=== PATIENT | female | born 1950 | race Caucasian/White ===

== ENCOUNTER → 2018-03-12 09:15 | Outpatient (CLI) | payer BC ==
[2015-12-14 10:56] VITALS: BMI 34.0
[~2018-03-12 09:15] MED LIST: ASPIRIN EC81 MG PO; LEVOTHROID112 MCG PO; LISINOPRIL10 MG PO; PRAVACHOL40 MG PO; PROZAC40 MG PO; VITAMIN D3 PO; ZOFRAN4 MG PO
== END | disposition home or self-care (01) ==
LOC: D.US 09:00
DX: R14.0 Abdominal distension (gaseous) (principal)

== ENCOUNTER 2018-05-04 06:08 | Inpatient (IN) | payer BC, MEDICARE ==
[2018-05-04] VITALS (7 sets, daily range): BP systolic 114–143; BP diastolic 58–73; BMI 33.7
[~2018-05-04] VITALS: Ht 154.9 cm; Wt 80.7 kg
--- NOTE | ~2018-05-04 | MORECARE ---
CASE MANAGEMENT DISCHARGE SUMMARY PATIENT: HENRRY YATES UNIT: [id number] ADM DATE: 05/04/18 AGE: 67 : 50 SEX: F ROOM/BED: D.1210 AUTHOR: KEN,DOC PHYSICIAN: REFERRING PHYSICIAN: QUAN RODRIGUEZ MD DATE OF SERVICE: 05/08/18 Discharge Plan Patient Name: HENRRY YATES Facility: [facility]:[place] : 1950 Planned Disposition: Home Anticipated Discharge Date: 05/10/18 Discharge Date: Expected LOS: 6 Initial Reviewer: [id number] Initial Review Date: 05/08/2018 Generated: 05/08/18 7:42 pm Comments DCP- Discharge Planning Updated by [email or web address]: Destiny Rhoades on 05/08/18 5:[address] Patient Name: HENRRY YATES Admission Status: ER Accout number: [id number] Admission Date: 05-04-2018 : 1950 Admission Diagnosis:ACUTE PANCREATITIS WITHOUT NECROSIS OR INFECTION, UNSP Attending: QUAN RODRIGUEZ Current LOS: 4 Anticipated DC Date: 05-10-2018 Planned Disposition: Home Primary Insurance: [employer] Discharge Planning Comments: CM MET WITH PATIENT REGARDING D/C NEEDS AND PLANS. PATIENT STATED SHE LIVES ALONE AND HAS NO STEPS TO ENTER HER HOME. PATIENT STATED SHE WILL DRIVE HERSELF HOME AT DISCHARGE. PATIENT IS INDEPENDENT AND HAS NO DME. PATIENTS PCP IS DR. HUFFMAN AND [facility] [address] [facility]. PATIENT REFUSED HOME HEALTH. CM WILL CONTINUE TO FOLLOW PATIENT WITH D/C NEEDS AND PLANS. PCP DR. NATHANAEL ZARATE [facility] ROBINA BARILLAS (SISTER) [phone] Ichthyologist: Destiny Rhoades DCPIA - Discharge Planning Initial Assessment Updated by [email or web address]: Destiny Rhoades on 05/08/18 6:37 pm * Is the patient Alert and Oriented? Yes * How many steps to enter\exit or inside your home? * PCP DR. HUFFMAN * Pharmacy [facility] [address] [facility] * Preadmission Environment Home Alone * ADLs Independent * Equipment None * List name and contact numbers for known caregivers / representatives who currently or will assist patient after discharge: ROBINA BARILLAS (SISTER) [phone] * Verbal permission to speak to the caregivers and representatives has been obtained from the patient. Yes * Community resources currently utilized None * Additional services required to return to the preadmission environment? Yes * Can the patient safely return to the preadmission environment? Yes * Has this patient been hospitalized within the prior 30 days at any hospital? No Patient Name: HENRRY YATES Page [id number] at 1842 All edits/amendments must be made on the electronic document DICTATION DATE: 05/08/181840 TOP INSTALLER: ESMER 05/08/181840 RPT#: [id number] DC DATE: STATUS: ADM IN [facility] [address] [place] [address] END OF REPORT
--- NOTE | ~2018-05-04 | HP ---
PATIENT: HENRRY YATES MEDICAL RECORD: [id number] ACCOUNT: [id number] LOCATION:[facility] D1210 : 50 ADMISSION DATE: 05/04/18 PCP: ALYSSA HUFFMAN HISTORY AND PHYSICAL EXAMINATION DATE OF ADMISSION: 05/04/2018 CHIEF COMPLAINT: Abdominal pain. HISTORY OF PRESENT ILLNESS: This is a 67-year-old female who had acute onset of abdominal pain yesterday afternoon. The pain was progressive and gradually worsening. She had nausea, but did not vomit until she got to the Emergency Room. She denies any diarrhea. She has a history of pancreatitis being treated in 2016 for that. She states this felt like the same pains. CT of the abdomen and pelvis done in the Emergency Department, had findings consistent with acute pancreatitis. There were no pseudocysts. White count was elevated at 17,700. Glucose was elevated at 285 (she has no known history of diabetes, but it runs the family). Amylase was elevated at 177, lipase elevated at 8719. She was admitted with acute pancreatitis. PAST MEDICAL AND SURGICAL HISTORY: She has hypothyroidism, hypertension, one bout of pancreatitis in 2016. PAST SURGICAL HISTORY: Appendectomy, tonsillectomy, hysterectomy, bladder suspension, breast lumpectomy, and rhinoplasty. HOME MEDICATIONS: Lisinopril 10 mg a day, pravastatin 40 mg a day, aspirin 81 mg a day, Prozac 40 mg a day, vitamin D daily, levothyroxine 112 mcg once a day, Zofran p.r.n. nausea. ALLERGIES: SULFA, NEXIUM, REGLAN, MORPHINE, PENICILLIN, KEFLEX AND LEVAQUIN. HABITS: She is a former smoker. Very rare alcohol. No illicit drug use. SOCIAL HISTORY: She is . 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 FAMILY HISTORY: Father in his late 70s. He had COPD and diabetes. Mother in her late 70s of uncertain causes. The patient had a brother with diabetes as well. REVIEW OF SYSTEMS: GENERAL: No major weight changes. HEENT: No particular sinus or allergy problems. RESPIRATORY: No history of COPD or asthma. CARDIAC: No history of heart disease. GASTROINTESTINAL: She has had some reflux. She has history of pancreatitis. GENITOURINARY: No significant problems there. MUSCULOSKELETAL: No significant problems there. NEUROLOGIC: No migraines or seizure disorder. PSYCHIATRIC: She has some depression. PHYSICAL EXAMINATION: VITAL SIGNS: Today, temperature 98.4, pulse 72, respirations 18, blood pressure 114/58, O2 sats 92%. HISTORY AND PHYSICAL [id number] HENRRY YATES GENERAL: Currently, she is under the effect of some Demerol, it was given to the patient recently. She is a little groggy. SKIN: Warm and dry. HEENT: Unremarkable. NECK: Supple. No JVD or bruit. HEART: Regular rate and rhythm without murmur. LUNGS: Clear. ABDOMEN: Soft, but distended and generalized tenderness. No guarding, no rebound, no mass. EXTREMITIES: No edema. LABORATORY DATA: CBC with a white count of 17,700, hemoglobin 14.3, hematocrit 42. Basic metabolic panel; sodium 135, potassium 4.4, chloride 99, CO2 28, BUN 27, creatinine 0.8, glucose 285, calcium is 8.8, magnesium 2.2. Liver functions are normal. Amylase 177, lipase 8719. CT of abdomen and pelvis with findings consistent with acute pancreatitis, no pseudocyst. ASSESSMENT: 1. Acute pancreatitis. 2. History of hypertension. 3. History of hypothyroidism. 4. Elevated glucose with no history of diabetes. PLAN: IV fluids, clear liquid diet. Pain control. We will change Demerol to Dilaudid and see if she tolerates that. Zofran as needed. We will not place NG tube unless she starts serial episodes of vomiting. We will check an A1c with this elevated glucose. Other tests and procedures as warranted. TRANSINT:[id number] Voice Confirmation ID: [id number] DOCUMENT ID: [id number] QUAN RODRIGUEZ MD at 1930 CC: [id number] DICTATION DATE: 05/04/18 1128 FURNACE PUNCHER: 05/04/18 1525 ADM IN [facility] [address] [place] [address]
--- NOTE | ~2018-05-04 | MORECARE ---
CASE MANAGEMENT DISCHARGE SUMMARY PATIENT: HENRRY YATES UNIT: [id number] ADM DATE: 05/04/18 AGE: 67 : 50 SEX: F ROOM/BED: D.1210 AUTHOR: TONY ROGERS PHYSICIAN: REFERRING PHYSICIAN: QUAN RODRIGUEZ MD DATE OF SERVICE: 05/09/18 Discharge Plan Patient Name: HENRRY YATES Facility: [facility]:[place] : 1950 Planned Disposition: Home Anticipated Discharge Date: 05/10/18 Discharge Date: 05/09/2018 Expected LOS: 6 Initial Reviewer: [email or web address] Initial Review Date: 05/08/2018 Generated: 05/09/18 4:57 pm Comments DCP- Discharge Planning Updated by [id number]: Destiny Rhoades on 05/08/18 5:[address] Patient Name: HENRRY YATES Admission Status: ER Accout number: [id number] Admission Date: 05-04-2018 : 1950 Admission Diagnosis:ACUTE PANCREATITIS WITHOUT NECROSIS OR INFECTION, UNSP Attending: QUAN RODRIGUEZ Current LOS: 4 Anticipated DC Date: 05-10-2018 Planned Disposition: Home Primary Insurance: [employer] Discharge Planning Comments: CM MET WITH PATIENT REGARDING D/C NEEDS AND PLANS. PATIENT STATED SHE LIVES ALONE AND HAS NO STEPS TO ENTER HER HOME. PATIENT STATED SHE WILL DRIVE HERSELF HOME AT DISCHARGE. PATIENT IS INDEPENDENT AND HAS NO DME. PATIENTS PCP IS DR. HUFFMAN AND [facility] [address] [facility]. PATIENT REFUSED HOME HEALTH. CM WILL CONTINUE TO FOLLOW PATIENT WITH D/C NEEDS AND PLANS. PCP DR. NATHANAEL ZARATE [facility] ROBINA BARILLAS (SISTER) [phone] Food Consultant: Destiny Rhoades DCPIA - Discharge Planning Initial Assessment Updated by [email or web address]: Destiny Rhoades on 05/08/18 6:37 pm * Is the patient Alert and Oriented? Yes * How many steps to enter\exit or inside your home? * PCP DR. HUFFMAN * Pharmacy [facility] [address] [facility] * Preadmission Environment Home Alone * ADLs Independent * Equipment None * List name and contact numbers for known caregivers / representatives who currently or will assist patient after discharge: ROBINA BARILLAS (SISTER) [phone] * Verbal permission to speak to the caregivers and representatives has been obtained from the patient. Yes * Community resources currently utilized None * Additional services required to return to the preadmission environment? Yes * Can the patient safely return to the preadmission environment? Yes * Has this patient been hospitalized within the prior 30 days at any hospital? No Coverage Notice Reviewer: [id number] Wes Rhoades Notice Issued Date-Time: 05/09/2018 6:57 Notice Type: IM Discharge Notice Notice Delivered To: Patient Relationship to Patient: Quality Control Microbiologist Name: Delivery Method: HAND - Hand Delivered Kristel Days: Prior Verbal Notification: Recipient Understood Notice: Yes Recipient Signature: Yes Med Rec Note Co-signed by Attending: Coverage Notice Comment: Last DP export: 05/08/18 5:42 Patient Name: HENRRY YATES Page 56797 at 1557 All edits/amendments must be made on the electronic document DICTATION DATE: 05/09/181556 AUTOMOTIVE PRODUCTION WORKER: ESMER 05/09/18 155 RPT#: [id number] DC DATE:05/09/18 STATUS: DIS IN [facility] [address] [place] [address] END OF REPORT
[2018-05-04 07:54] LABS: BASOPHILS 0.1 % (0-2); EOSINOPHILS 0.1 % (0-7); HEMOGLOBIN 14.3 g/dL (12-16); IMMATURE GRANULOCYTES 0.4 % (0-5); LYMPHOCYTES 11.9 % (15-50); MCH 31.2 pg (26.0-34.0); MCV 91.7 fL (80.0-100.0); MEAN PLATELET VOLUME 11.7 fL (7.4-10.4); MONOCYTES 7.8 % (2-11); NEUTROPHILS 79.7 % (40-80); PLATELET COUNT 229 10x3/uL (130-400); RBC 4.58 10x6/uL (4.00-5.40); RDW 12.7 % (11.5-14.5); WBC 17.7 10x3/uL (4.8-10.8)
[2018-05-04 08:14] LABS: ALBUMIN 3.9 g/dL (3.4-5.0); ALKALINE PHOSPHATASE 75 U/L (46-116); ALT (SGPT) 30 U/L (10-68); AMYLASE - SERUM 177 U/L (25-115); BILIRUBIN - TOTAL 0.48 mg/dL (0.2-1.3); CALC OSMOLALITY 284 mosm/kg (275-300); CALCIUM 8.8 mg/dL (8.5-10.1); CARBON DIOXIDE 28.1 mmol/L (21.0-32.0); CHLORIDE - SERUM 99 mmol/L (98-107); CREATININE - SERUM 0.8 mg/dL (0.6-1.3); MAGNESIUM - SERUM 2.2 mg/dL (1.8-2.4); POTASSIUM - SERUM 4.4 mmol/L (3.5-5.1); PROTEIN - SERUM 7.8 g/dL (6.4-8.2); SODIUM 135 mmol/L (136-145); UREA NITROGEN 27 mg/dL (7-18); eGFR NON AFRICAN AMERICAN 76 mL/min (90-120)
[2018-05-04 08:18] LABS: GLUCOSE 285 mg/dL (74-106)
[2018-05-04 08:35] LABS: LIPASE 8719 U/L (73-393)
[2018-05-04] MEDS ORDERED: VITAMIN D31000 UNI2 PO (10:34)
[2018-05-04] MEDS ORDERED: VITAMIN D31000 UNI2 (10:35)
[2018-05-05 04:15] VITALS: BP 141/77
[2018-05-05 07:03] LABS: BASOPHILS 0.1 % (0-2); EOSINOPHILS 0.1 % (0-7); HEMOGLOBIN 12.9 g/dL (12-16); IMMATURE GRANULOCYTES 0.4 % (0-5); LYMPHOCYTES 12.7 % (15-50); MCH 30.7 pg (26.0-34.0); MCHC 32.3 g/dL (31.0-37.0); MEAN PLATELET VOLUME 11.6 fL (7.4-10.4); NEUTROPHILS 77.7 % (40-80); PLATELET COUNT 187 10x3/uL (130-400); RDW 13.2 % (11.5-14.5); WBC 14.3 10x3/uL (4.8-10.8)
[2018-05-05 07:06] LABS: ALBUMIN 3.3 g/dL (3.4-5.0); ALKALINE PHOSPHATASE 63 U/L (46-116); BILIRUBIN - TOTAL 0.53 mg/dL (0.2-1.3); CALCIUM 8.1 mg/dL (8.5-10.1); CHLORIDE - SERUM 102 mmol/L (98-107); CHOL - HDL RATIO 2.8 ratio (2.3-4.1); CHOLESTEROL, TOTAL 145 mg/dL (0-200); CREATININE - SERUM 0.8 mg/dL (0.6-1.3); HDL CHOLESTEROL 51 mg/dL (32-96); LDL CHOLESTEROL 64 mg/dL (0-100); LDL-HDL RATIO 1.3 ratio (1.5-3.5); LIPASE 1108 U/L (73-393); MAGNESIUM - SERUM 2.1 mg/dL (1.8-2.4); PHOSPHOROUS 3.7 mg/dL (2.5-4.9); POTASSIUM - SERUM 4.6 mmol/L (3.5-5.1); PROTEIN - SERUM 7.3 g/dL (6.4-8.2); SODIUM 137 mmol/L (136-145); TRIGLYCERIDE 150 mg/dL (30-200); UREA NITROGEN 22 mg/dL (7-18); eGFR NON AFRICAN AMERICAN 76 mL/min (90-120)
[2018-05-05 07:07] LABS: ALT (SGPT) 21 U/L (10-68); AMYLASE - SERUM 44 U/L (25-115); CALC OSMOLALITY 279 mosm/kg (275-300); GLUCOSE 148 mg/dL (74-106)
[2018-05-05 07:16] LABS: MCV 95.2 fL (80.0-100.0)
[2018-05-05 08:11] VITALS: BP 139/72
[2018-05-05 12:00] VITALS: BP 121/68
[2018-05-05 16:00] VITALS: BP 147/68
[2018-05-05 21:47] VITALS: BP 148/75
[2018-05-06 01:51] VITALS: BP 140/73
[2018-05-06 05:28] LABS: BASOPHILS 0.1 % (0-2); EOSINOPHILS 0.8 % (0-7); HEMATOCRIT 36.7 % (36.0-48.0); HEMOGLOBIN 11.9 g/dL (12-16); IMMATURE GRANULOCYTES 0.3 % (0-5); MCH 30.8 pg (26.0-34.0); MCHC 32.4 g/dL (31.0-37.0); MCV 95.1 fL (80.0-100.0); MEAN PLATELET VOLUME 11.3 fL (7.4-10.4); MONOCYTES 7.3 % (2-11); NEUTROPHILS 78.5 % (40-80); PLATELET COUNT 167 10x3/uL (130-400); RBC 3.86 10x6/uL (4.00-5.40); RDW 12.7 % (11.5-14.5); WBC 14.5 10x3/uL (4.8-10.8)
[2018-05-06 05:38] LABS: CALC OSMOLALITY 278 mosm/kg (275-300); CALCIUM 8.5 mg/dL (8.5-10.1); CARBON DIOXIDE 28.2 mmol/L (21.0-32.0); CHLORIDE - SERUM 102 mmol/L (98-107); CREATININE - SERUM 0.8 mg/dL (0.6-1.3); GLUCOSE 116 mg/dL (74-106); LIPASE 135 U/L (73-393); SODIUM 139 mmol/L (136-145); UREA NITROGEN 13 mg/dL (7-18); eGFR NON AFRICAN AMERICAN 76 mL/min (90-120)
[2018-05-06 06:48] VITALS: BP 119/60
[2018-05-06 08:14] VITALS: BP 137/71
[2018-05-06 11:28] VITALS: BP 132/50
[2018-05-06 13:25] VITALS: Ht 154.9 cm; Wt 80.7 kg
[2018-05-06 15:31] VITALS: BP 136/59
[2018-05-06 21:34] VITALS: BP 111/44
[2018-05-07 03:48] VITALS: BP 124/58
[2018-05-07 06:27] VITALS: BP 171/63
[2018-05-07 07:38] VITALS: BP 135/67
[2018-05-07 11:23] VITALS: BP 144/72
[2018-05-07 15:30] VITALS: BP 126/70
[2018-05-07 20:00] VITALS: BP 135/67
[2018-05-08] VITALS: BP 149/77
[2018-05-08 04:00] VITALS: BP 130/79
[2018-05-08 05:32] LABS: BASOPHILS 0.2 % (0-2); EOSINOPHILS 2.6 % (0-7); HEMATOCRIT 36.4 % (36.0-48.0); HEMOGLOBIN 12.2 g/dL (12-16); IMMATURE GRANULOCYTES 0.3 % (0-5); LYMPHOCYTES 13.6 % (15-50); MCH 30.7 pg (26.0-34.0); MCHC 33.5 g/dL (31.0-37.0); MCV 91.7 fL (80.0-100.0); MEAN PLATELET VOLUME 11.5 fL (7.4-10.4); MONOCYTES 6.4 % (2-11); NEUTROPHILS 76.9 % (40-80); RBC 3.97 10x6/uL (4.00-5.40); RDW 12.3 % (11.5-14.5); WBC 11.4 10x3/uL (4.8-10.8)
[2018-05-08 05:40] LABS: PLATELET COUNT 201 10x3/uL (130-400)
[2018-05-08 05:55] LABS: ALBUMIN 2.6 g/dL (3.4-5.0); ALKALINE PHOSPHATASE 70 U/L (46-116); ALT (SGPT) 47 U/L (10-68); BILIRUBIN - TOTAL 0.64 mg/dL (0.2-1.3); CALC OSMOLALITY 277 mosm/kg (275-300); CALCIUM 8.5 mg/dL (8.5-10.1); CHLORIDE - SERUM 102 mmol/L (98-107); CREATININE - SERUM 0.6 mg/dL (0.6-1.3); GLUCOSE 99 mg/dL (74-106); LIPASE 87 U/L (73-393); PROTEIN - SERUM 6.2 g/dL (6.4-8.2); SODIUM 140 mmol/L (136-145); UREA NITROGEN 10 mg/dL (7-18); eGFR NON AFRICAN AMERICAN > 90 mL/min (90-120)
[2018-05-08 06:08] LABS: POTASSIUM - SERUM 3.7 mmol/L (3.5-5.1)
[2018-05-08 08:13] VITALS: BP 131/73
[2018-05-08 12:16] VITALS: BP 117/63
[2018-05-08 16:18] VITALS: BP 137/76
[2018-05-08 20:00] VITALS: BP 126/66
[2018-05-09] VITALS: BP 122/74
[2018-05-09 04:00] VITALS: BP 125/72
[2018-05-09 06:16] LABS: BASOPHILS 0.3 % (0-2); EOSINOPHILS 5.1 % (0-7); HEMATOCRIT 36.2 % (36.0-48.0); HEMOGLOBIN 12.1 g/dL (12-16); IMMATURE GRANULOCYTES 0.3 % (0-5); LYMPHOCYTES 19.5 % (15-50); MCH 30.4 pg (26.0-34.0); MCHC 33.4 g/dL (31.0-37.0); MEAN PLATELET VOLUME 10.9 fL (7.4-10.4); MONOCYTES 6.6 % (2-11); NEUTROPHILS 68.2 % (40-80); PLATELET COUNT 211 10x3/uL (130-400); RBC 3.98 10x6/uL (4.00-5.40); RDW 12.5 % (11.5-14.5); WBC 9.1 10x3/uL (4.8-10.8)
[2018-05-09 06:30] LABS: ALBUMIN 2.7 g/dL (3.4-5.0); ALKALINE PHOSPHATASE 67 U/L (46-116); ALT (SGPT) 52 U/L (10-68); BILIRUBIN - TOTAL 0.37 mg/dL (0.2-1.3); CALC OSMOLALITY 277 mosm/kg (275-300); CALCIUM 8.8 mg/dL (8.5-10.1); CARBON DIOXIDE 30.3 mmol/L (21.0-32.0); CHLORIDE - SERUM 100 mmol/L (98-107); CREATININE - SERUM 0.7 mg/dL (0.6-1.3); GLUCOSE 110 mg/dL (74-106); LIPASE 103 U/L (73-393); POTASSIUM - SERUM 3.2 mmol/L (3.5-5.1); SODIUM 139 mmol/L (136-145); UREA NITROGEN 11 mg/dL (7-18); eGFR NON AFRICAN AMERICAN 88 mL/min (90-120)
[2018-05-09 09:17] VITALS: BP 106/55
[2018-05-09 12:00] VITALS: BP 118/68
[2018-05-09] MEDS ORDERED: GLUCOPHAGE500 MG PO (13:37)
== END 2018-05-09 15:10 | disposition home or self-care (01) | DRG 440 ==
LOC: D.ER 06:08 → D.M3 09:27 → D.EDHOLD 09:27 → D.M3 10:10
PROVIDERS: Emergency Medicine; Family Medicine
DX: K85.90 Acute pancreatitis without necrosis or infection, unspecified (principal); E03.9 Hypothyroidism, unspecified; I10 Essential (primary) hypertension; E11.65 Type 2 diabetes mellitus with hyperglycemia; R51 Headache; Z87.891 Personal history of nicotine dependence

== ENCOUNTER 2019-11-24 06:13 | Day surgery (SDC) | payer BC ==
[2018-05-06 13:25] VITALS: BMI 33.6
[~2019-11-24 06:13] MED LIST changes: +GLUCOPHAGE500 MG PO; +VITAMIN D31000 UNI2; +VITAMIN D31000 UNI2 PO
[2019-11-24 06:48] LABS: ANION GAP 10.8 mmol/L (8-16); CARBON DIOXIDE 30.1 mmol/L (21.0-32.0); CREATININE - SERUM 1.2 mg/dL (0.6-1.3); POTASSIUM - SERUM 3.9 mmol/L (3.5-5.1)
[2019-11-24 06:52] LABS: INR 1.01 (0.85-1.17); PROTIME 13.3 SECONDS (11.6-15.0)
[2019-11-24 07:13] LABS: HEMATOCRIT 39.8 % (36.0-48.0); HEMOGLOBIN 12.8 g/dL (12-16); MCH 30.8 pg (26.0-34.0); MCHC 32.2 g/dL (31.0-37.0); MCV 95.9 fL (80.0-100.0); MEAN PLATELET VOLUME 11.3 fL (7.4-10.4); RBC 4.15 10x6/uL (4.00-5.40); WBC 9.5 10x3/uL (4.8-10.8)
--- NOTE | 2019-11-24 08:00 | NUR ---
0800 DR VERA HERE TO SPEAK WITH PT WHO HAS DECIDED TO RESCHEDULE DUE TO A POOR PREP. PT WENT TO THE BR AFTER ARRIVAL TO OPS. STOOL IS SEMI SOLID. NO LIQUID. PT STATES SHE ONLY DID A DUCOLAX LIQUID TIMES 2 PREP DUE TO A KNOW ALLERGY TO SULFATE THAT WAS AN INGREDIENT IN THE PLENVU. DR VERA RECOMMENDS HER DOING A MIRALAX PREP AND STATES HE WILL TRY TO GET HER RESCHEDULED ADAM. PT VOICES UNDERSTANDING OF PLAN AND IS GOING TO GO BY DR VERA'S OFFICE TO GET INSTRUCTIONS ON THE MIRALAX PREP.
== END 2019-11-24 08:03 | disposition home or self-care (01) ==
LOC: D.OPS 06:13
PROVIDERS: Anesthesiology; ATTEND Internal Medicine Gastroenterology
DX: R10.10 Upper abdominal pain, unspecified (principal); R19.4 Change in bowel habit; Z86.010 Personal history of colon polyps; Z53.9 Procedure and treatment not carried out, unspecified reason

== ENCOUNTER 2019-12-17 06:05 | Day surgery (SDC) | payer BC ==
[~2019-12-17] VITALS: Ht 154.9 cm; Wt 81.4 kg
[2019-12-17 06:56] LABS: ANION GAP 12.5 mmol/L (8-16); CALCIUM 9.7 mg/dL (8.5-10.1); CARBON DIOXIDE 27.6 mmol/L (21.0-32.0); CREATININE - SERUM 1.1 mg/dL (0.6-1.3); POTASSIUM - SERUM 4.1 mmol/L (3.5-5.1)
[2019-12-17 07:09] LABS: HEMATOCRIT 38.6 % (36.0-48.0); HEMOGLOBIN 12.6 g/dL (12-16); MCH 31.2 pg (26.0-34.0); MCHC 32.6 g/dL (31.0-37.0); MCV 95.5 fL (80.0-100.0); MEAN PLATELET VOLUME 11.4 fL (7.4-10.4); RBC 4.04 10x6/uL (4.00-5.40); WBC 8.6 10x3/uL (4.8-10.8)
[2019-12-17] MEDS ORDERED: VOLTAREN75 MG PO (07:27)
[2019-12-17 07:29] VITALS: BP 137/68; Ht 154.9 cm; Wt 81.4 kg
--- NOTE | 2019-12-17 13:50 | NUR ---
IV D/C'D WITH CANNULA INTACT. DISCHARGE INSTRUCTIONS GIVEN. HAS BEEN AT BEDSIDE
--- NOTE | 2019-12-19 15:58 | OP ---
PATIENT NAME: MARIA ELENA YATES MEDICAL RECORD: [id number] :[birth year] LOCATION:D.OPS ADMISSION DATE: SURGEON: IVANIA VERA DO DATE OF OPERATION: 12/17/2019 PROCEDURE: Colonoscopy. INDICATIONS FOR PROCEDURE: History of colon polyps and irregular bowel habits. SCOPE: Olympus video pediatric colonoscope. MEDICATIONS: Propofol 440 mg IV per anesthesia. WITHDRAWAL TIME: 13 minutes. ESTIMATED BLOOD LOSS: None. COMPLICATIONS: None. FINDINGS: Informed consent was given. The patient was made comfortable with the above medication. After reaching an adequate level of sedation by slow IV push, the patient was placed on her left side. A digital rectal examination was performed, it was normal. The endoscope was then advanced under direct visualization through the rectum to the cecum, confirmed by the presence of the appendiceal orifice and ileocecal valve. The endoscope was slowly withdrawn and mucosa was carefully examined. The prep quality was good. There were no polyps visualized on today's examination. There were scattered diverticula, mild to moderate severity in the sigmoid and descending colon. Retroflexion was performed in the rectum with visualization of grade I internal hemorrhoids without bleeding. The endoscope was withdrawn from the patient. The patient tolerated the procedure well and there were no complications. IMPRESSION: 1. Mild to moderate diverticulosis of the descending and sigmoid colon. 2. Grade I internal hemorrhoids without bleeding. PLAN AND RECOMMENDATIONS: 1. Discharge home when recovery parameters are met. 2. High fiber diet. 3. Supplement diet with 1 tablespoon of fiber daily. 4. Continue current medications. 5. Follow up in the GI clinic in 4-6 weeks. 6. Recall colonoscopy in 5 years based on history of polyps. TRANSINT:[id number] Voice Confirmation ID: [id number] DOCUMENT ID: [id number] IVANIA VERA DO at 1558 CC: [id number] DICTATION DATE: 12/17/19911 MOLDING SUPERVISOR: 12/17/19 1159 [facility] 12/17/19 [place] [id number]
== END 2019-12-17 10:15 | disposition home or self-care (01) ==
LOC: D.OPS 06:05
PROVIDERS: Anesthesiology; ATTEND Internal Medicine Gastroenterology
DX: Z86.010 Personal history of colon polyps (principal); R19.4 Change in bowel habit; E11.9 Type 2 diabetes mellitus without complications; E07.9 Disorder of thyroid, unspecified; R10.10 Upper abdominal pain, unspecified; Z79.84 Long term (current) use of oral hypoglycemic drugs